=== PATIENT | female | born 1935 | race Caucasian/White ===

== ENCOUNTER 2020-02-27 13:26 | Inpatient (IN) | payer OTHER, MEDICAID, SELFPAY ==
[~2020-02-27] VITALS: Ht 157.5 cm; Wt 60.8 kg
[2020-02-27 13:44] VITALS: BP_SYST 133
[2020-02-27] MEDS ORDERED: LEVOFLOXACIN 500 MG/D5W 100 ML IV ONE (14:00)
[2020-02-27] MEDS ORDERED: ALBUTEROL SULFATE 0.083% 2.5 MG/3 ML VIAL.NEB INH ONE (14:00)
[2020-02-27] MEDS ORDERED: OMEG1CAP48 PO (14:37)
[2020-02-27] MEDS ORDERED: ASPI-524 PO (14:37)
[2020-02-27] MEDS ORDERED: AMLO5TAB4 PO (14:37)
[2020-02-27] MEDS ORDERED: DONE10TA4 PO (14:37)
[2020-02-27] MEDS ORDERED: DOCU100T10 PO (14:37)
[2020-02-27] MEDS ORDERED: FIBER POWDER PO (14:37)
[2020-02-27] MEDS ORDERED: LIP20 PO (14:38)
[2020-02-27] MEDS ORDERED: MAG-151 PO (14:38)
[2020-02-27] MEDS ORDERED: MELA5TAB12 PO (14:38)
[2020-02-27] MEDS ORDERED: METO25TA6 PO (14:43)
[2020-02-27] MEDS ORDERED: ACET325C6 PO (14:43)
[2020-02-27] MEDS ORDERED: OMEP-268 PO (14:43)
[2020-02-27] MEDS ORDERED: TRAM-545 PO (14:43)
[2020-02-27] MEDS ORDERED: SYN50 PO (14:43)
[2020-02-27] MEDS ORDERED: CAPS1ADH9 TP (14:43)
[2020-02-27 15:05] LABS: BASOPHILS % (AUTO) 0.4 % (0.0-2.0); EOSINOPHILS # (AUTO) 0.1 K/uL (0.0-0.4); EOSINOPHILS % (AUTO) 1.7 % (0.0-4.0); HEMATOCRIT 42.5 % (36-48); HEMOGLOBIN 14.3 g/dL (12.0-16.0); LYMPHOCYTES # (AUTO) 2.5 K/uL (1.0-5.5); LYMPHOCYTES % (AUTO) 44.2 % (20.5-51.5); MEAN CORPUSCULAR HEMOGLOBIN 30 pg (27-31); MEAN CORPUSCULAR HGB CONC 34 % (32-36); MEAN CORPUSCULAR VOLUME 89 fL (79.0-98.0); MONOCYTES # (AUTO) 0.4 K/uL (0.0-1.0); MONOCYTES % (AUTO) 7.3 % (1.7-9.3); NEUTROPHILS # (AUTO) 2.6 K/uL (1.8-7.7); NEUTROPHILS % (AUTO) 46.4 % (40.0-70.0); PLATELET COUNT (AUTO) 197 K/uL (130-430); RED BLOOD CELL COUNT(AUTO) 4.76 MIL/uL (4.2-6.2); RED CELL DISTRIBUTION WIDTH 13.3 % (9.0-15.0); WHITE BLOOD COUNT (AUTO) 5.6 K/uL (4.8-10.8)
[2020-02-27 15:07] LABS: BILIRUBIN,URINE NEGATIVE (NEGATIVE); COLOR,URINE YELLOW (YELLOW); GLUCOSE,URINE NEGATIVE (NEGATIVE); KETONES,URINE NEGATIVE (NEGATIVE); LEUKOCYTE ESTERASE ,URINE NEGATIVE (NEGATIVE); NITRITE, URINE NEGATIVE (NEGATIVE); PROTEIN URINE 1+ (NEGATIVE); UROBILINOGEN,URINE 0.2 (0.2-1.0)
[2020-02-27 15:17] LABS: BLOOD, URINE TRACE (NEGATIVE); CLARITY/URINE SLIGHTLY HAZY (CLEAR)
[2020-02-27] MEDS ORDERED: MAGN800O PO (15:25)
[2020-02-27 15:28] LABS: BACTERIA,URINE FEW /HPF (None Seen); MUCUS,URINE None Seen /LPF (None Seen)
[2020-02-27 15:29] LABS: URINE AMORPHOUS URATE 2+ /HPF (None Seen)
[2020-02-27 15:32] LABS: PROTHROMBIN TIME 10.3 SECS (9.5-12.5)
[2020-02-27 15:41] LABS: ANION GAP 10 (5-15); CALCIUM 9.1 mg/dL (8.4-11.0); CHLORIDE 103 mmol/L (98-107); CREATININE 0.77 mg/dL (0.55-1.30); GLUCOSE 110 mg/dL (70-99); POTASSIUM 3.9 mmol/L (3.5-5.1); SODIUM SERUM 140 mmol/L (136-145); UREA NITROGEN, BLOOD 15 mg/dL (8-21)
[2020-02-27 15:51] LABS: ALANINE AMINOTRANSFERASE 34 U/L (12-78); ALBUMIN 3.5 g/dL (3.4-4.8); ASPARTATE AMINOTRANSFERASE 38 U/L (10-37); FREE T4 (FREE THYROXINE) 1.4 ng/dl (0.8-1.5); TOTAL BILIRUBIN 1.5 mg/dL (0.0-1.0)
[2020-02-27] MEDS ORDERED: AZITHROMYCIN 250 MG TABLET PO ONE (17:30)
[2020-02-27 18:09] LABS: LACTATE DEHYDROGENASE 474 U/L (81-234)
[2020-02-27] MEDS ORDERED: ZOLPIDEM TARTRATE 5 MG TABLET PO PRN (18:15)
[2020-02-27] MEDS ORDERED: LORazepam 2 MG/ML VIAL IVP PRN (18:15)
[2020-02-27] MEDS ORDERED: MUPIROCIN 2% TOPICAL OINTMENT 22 GM NS PRN (18:15)
[2020-02-27] MEDS ORDERED: MAGNESIUM SULFATE 50 ML IV PRN (18:15)
[2020-02-27] MEDS ORDERED: DOCUSATE SODIUM 100 MG CAPSULE PO PRN (18:15)
[2020-02-27 18:23] LABS: C-REACTIVE PROTEIN QUANT < 0.2 mg/dL (0-0.5)
[2020-02-27 18:24] VITALS: BP_SYST 128
[2020-02-27] MEDS ORDERED: ENOXAPARIN SODIUM 40 MG/0.4 ML SYRINGE SUBCUT ONE (19:00)
[2020-02-27] MEDS ORDERED: ASCORBIC ACID 500 MG TABLET PO ONE (19:00)
[2020-02-27 20:00] VITALS: BP_SYST 151
[2020-02-27] MEDS: ATORVASTATIN 20 MG TABLET PO SCH (20:49)
[2020-02-27] MEDS: METOPROLOL TARTRATE 25 MG TABLET PO SCH (20:49)
[2020-02-27] MEDS: NACL 0.9% 1,000 ML IV SCH (21:24)
[2020-02-27] MEDS: cefTRIAXone 1 GM in D5W 50 ML IV SCH (21:24)
[2020-02-27] MEDS ORDERED: cefTRIAXone 1 GM IVPB PREMIX 50 ML IV ONE (21:34)
[2020-02-27] MEDS: MORPHINE SULFATE 10 MG/ML VIAL IVP PRN (22:35)
[2020-02-28] VITALS: BP_SYST 140
[2020-02-28] MEDS: LEVOTHYROXINE SODIUM 0.05 MG TABLET PO SCH (06:30)
[2020-02-28 07:08] LABS: BASOPHILS % (AUTO) 0.6 % (0.0-2.0); EOSINOPHILS # (AUTO) 0.1 K/uL (0.0-0.4); EOSINOPHILS % (AUTO) 2.5 % (0.0-4.0); HEMOGLOBIN 12.9 g/dL (12.0-16.0); LYMPHOCYTES # (AUTO) 1.9 K/uL (1.0-5.5); LYMPHOCYTES % (AUTO) 43.8 % (20.5-51.5); MEAN CORPUSCULAR HEMOGLOBIN 30 pg (27-31); MEAN CORPUSCULAR HGB CONC 34 % (32-36); MEAN CORPUSCULAR VOLUME 89 fL (79.0-98.0); MONOCYTES # (AUTO) 0.5 K/uL (0.0-1.0); MONOCYTES % (AUTO) 11.2 % (1.7-9.3); NEUTROPHILS # (AUTO) 1.8 K/uL (1.8-7.7); NEUTROPHILS % (AUTO) 41.9 % (40.0-70.0); PLATELET COUNT (AUTO) 161 K/uL (130-430); RED BLOOD CELL COUNT(AUTO) 4.26 MIL/uL (4.2-6.2); RED CELL DISTRIBUTION WIDTH 12.9 % (9.0-15.0); WHITE BLOOD COUNT (AUTO) 4.4 K/uL (4.8-10.8)
[2020-02-28 07:14] LABS: ANION GAP 8 (5-15); CHLORIDE 101 mmol/L (98-107); CREATININE 0.64 mg/dL (0.55-1.30); GLUCOSE 94 mg/dL (70-99); LACTATE DEHYDROGENASE 207 U/L (81-234); POTASSIUM 3.3 mmol/L (3.5-5.1); SODIUM SERUM 137 mmol/L (136-145); UREA NITROGEN, BLOOD 11 mg/dL (8-21)
[2020-02-28 07:16] LABS: C-REACTIVE PROTEIN QUANT < 0.2 mg/dL (0-0.5)
[2020-02-28 08:10] VITALS: BP_SYST 157
[2020-02-28 08:30] LABS: ERYTHROCYTE SEDIMENTATION RATE 12 MM/HR (0-20)
[2020-02-28] MEDS: MORPHINE SULFATE 10 MG/ML VIAL IVP PRN ×2 (08:45→09:22)
[2020-02-28] MEDS: ONDANSETRON HCL 4 MG/2 ML VIAL IVP PRN (08:50)
[2020-02-28] MEDS ORDERED: amLODIPine BESYLATE 5 MG TABLET PO SCH (09:00)
[2020-02-28] MEDS: AZITHROMYCIN 250 MG TABLET PO SCH (09:16)
[2020-02-28] MEDS: ENOXAPARIN SODIUM 40 MG/0.4 ML SYRINGE SUBCUT SCH (09:16)
[2020-02-28] MEDS: ASCORBIC ACID 500 MG TABLET PO SCH (09:16)
[2020-02-28] MEDS: ASPIRIN 81 MG TAB.CHEW PO SCH (09:16)
[2020-02-28] MEDS: METOPROLOL TARTRATE 25 MG TABLET PO SCH ×2 (09:17→21:10)
[2020-02-28] MEDS: NACL 0.9% 1,000 ML IV SCH (16:50)
[2020-02-28 16:51] VITALS: BP_SYST 149
[2020-02-28] MEDS ORDERED: CHOLECALCIFEROL (VITAMIN D3) 2,000 UNIT TABLET PO ONE (17:30)
[2020-02-28] MEDS ORDERED: IVERMECTIN 3 MG TABLET PO ONE (17:30)
[2020-02-28 20:00] VITALS: BP_SYST 136
[2020-02-28] MEDS: cefTRIAXone 1 GM in D5W 50 ML IV SCH (21:09)
[2020-02-28] MEDS: ATORVASTATIN 20 MG TABLET PO SCH (21:10)
[2020-02-28] MEDS: ACETAMINOPHEN 325 MG TABLET PO PRN (21:11)
[2020-02-28] MEDS: MELATONIN 3 MG TABLET PO PRN (21:11)
[2020-02-29] VITALS: BP_SYST 131
[2020-02-29] MEDS: LEVOTHYROXINE SODIUM 0.05 MG TABLET PO SCH (06:40)
[2020-02-29 08:18] LABS: BASOPHILS % (AUTO) 0.7 % (0.0-2.0); EOSINOPHILS # (AUTO) 0.2 K/uL (0.0-0.4); EOSINOPHILS % (AUTO) 3.8 % (0.0-4.0); HEMATOCRIT 45.3 % (36-48); HEMOGLOBIN 15.5 g/dL (12.0-16.0); LYMPHOCYTES # (AUTO) 1.8 K/uL (1.0-5.5); LYMPHOCYTES % (AUTO) 40.1 % (20.5-51.5); MEAN CORPUSCULAR HEMOGLOBIN 31 pg (27-31); MEAN CORPUSCULAR HGB CONC 34 % (32-36); MEAN CORPUSCULAR VOLUME 90 fL (79.0-98.0); MONOCYTES # (AUTO) 0.4 K/uL (0.0-1.0); MONOCYTES % (AUTO) 9.2 % (1.7-9.3); NEUTROPHILS # (AUTO) 2.1 K/uL (1.8-7.7); NEUTROPHILS % (AUTO) 46.2 % (40.0-70.0); PLATELET COUNT (AUTO) 158 K/uL (130-430); RED BLOOD CELL COUNT(AUTO) 5.05 MIL/uL (4.2-6.2); RED CELL DISTRIBUTION WIDTH 13.1 % (9.0-15.0); WHITE BLOOD COUNT (AUTO) 4.5 K/uL (4.8-10.8)
[2020-02-29 08:20] VITALS: BP_SYST 131
[2020-02-29 08:23] LABS: ANION GAP 6 (5-15); CALCIUM 8.8 mg/dL (8.4-11.0); CHLORIDE 107 mmol/L (98-107); CREATININE 0.68 mg/dL (0.55-1.30); GLUCOSE 105 mg/dL (70-99); POTASSIUM 3.4 mmol/L (3.5-5.1); SODIUM SERUM 140 mmol/L (136-145); UREA NITROGEN, BLOOD 8 mg/dL (8-21)
[2020-02-29 08:24] LABS: C-REACTIVE PROTEIN QUANT < 0.2 mg/dL (0-0.5)
[2020-02-29] MEDS: ASPIRIN 81 MG TAB.CHEW PO SCH (09:47)
[2020-02-29] MEDS: ASCORBIC ACID 500 MG TABLET PO SCH (09:47)
[2020-02-29] MEDS: METOPROLOL TARTRATE 25 MG TABLET PO SCH ×2 (09:47→21:07)
[2020-02-29] MEDS: CHOLECALCIFEROL (VITAMIN D3) 2,000 UNIT TABLET PO SCH (09:47)
[2020-02-29] MEDS: AZITHROMYCIN 250 MG TABLET PO SCH (09:49)
[2020-02-29] MEDS: ENOXAPARIN SODIUM 40 MG/0.4 ML SYRINGE SUBCUT SCH (09:50)
[2020-02-29] MEDS: NACL 0.9% 1,000 ML IV SCH (12:15)
[2020-02-29] MEDS: POTASSIUM CHLORIDE 20 MEQ TAB.PRT.SR PO PRN (12:40)
[2020-02-29 12:55] VITALS: BP_SYST 143
[2020-02-29 15:42] VITALS: BP_SYST 148
[2020-02-29 20:00] VITALS: BP_SYST 154
[2020-02-29] MEDS: ATORVASTATIN 20 MG TABLET PO SCH (21:07)
[2020-02-29] MEDS: cefTRIAXone 1 GM in D5W 50 ML IV SCH (21:07)
[2020-02-29] MEDS: ACETAMINOPHEN 325 MG TABLET PO PRN (21:08)
[2020-02-29] MEDS: MELATONIN 3 MG TABLET PO PRN (22:43)
[2020-03-01] VITALS: BP_SYST 147
[2020-03-01] MEDS: LEVOTHYROXINE SODIUM 0.05 MG TABLET PO SCH (06:44)
[2020-03-01 07:07] LABS: BASOPHILS % (AUTO) 0.5 % (0.0-2.0); EOSINOPHILS # (AUTO) 0.2 K/uL (0.0-0.4); EOSINOPHILS % (AUTO) 3.4 % (0.0-4.0); HEMATOCRIT 42.1 % (36-48); HEMOGLOBIN 14.4 g/dL (12.0-16.0); LYMPHOCYTES # (AUTO) 2.1 K/uL (1.0-5.5); LYMPHOCYTES % (AUTO) 39.4 % (20.5-51.5); MEAN CORPUSCULAR HEMOGLOBIN 30 pg (27-31); MEAN CORPUSCULAR HGB CONC 34 % (32-36); MEAN CORPUSCULAR VOLUME 89 fL (79.0-98.0); MONOCYTES # (AUTO) 0.4 K/uL (0.0-1.0); MONOCYTES % (AUTO) 7.2 % (1.7-9.3); NEUTROPHILS # (AUTO) 2.6 K/uL (1.8-7.7); NEUTROPHILS % (AUTO) 49.5 % (40.0-70.0); PLATELET COUNT (AUTO) 185 K/uL (130-430); RED BLOOD CELL COUNT(AUTO) 4.72 MIL/uL (4.2-6.2); RED CELL DISTRIBUTION WIDTH 12.8 % (9.0-15.0); WHITE BLOOD COUNT (AUTO) 5.3 K/uL (4.8-10.8)
[2020-03-01 07:20] LABS: ANION GAP 9 (5-15); CALCIUM 8.7 mg/dL (8.4-11.0); CHLORIDE 106 mmol/L (98-107); CREATININE 0.65 mg/dL (0.55-1.30); GLUCOSE 110 mg/dL (70-99); POTASSIUM 3.5 mmol/L (3.5-5.1); SODIUM SERUM 142 mmol/L (136-145); UREA NITROGEN, BLOOD 6 mg/dL (8-21)
[2020-03-01] MEDS: ASCORBIC ACID 500 MG TABLET PO SCH (09:30)
[2020-03-01] MEDS: CHOLECALCIFEROL (VITAMIN D3) 2,000 UNIT TABLET PO SCH (09:30)
[2020-03-01] MEDS: ASPIRIN 81 MG TAB.CHEW PO SCH (09:30)
[2020-03-01] MEDS: AZITHROMYCIN 250 MG TABLET PO SCH (09:30)
[2020-03-01] MEDS: METOPROLOL TARTRATE 25 MG TABLET PO SCH ×2 (09:30→21:28)
[2020-03-01] MEDS: ENOXAPARIN SODIUM 40 MG/0.4 ML SYRINGE SUBCUT SCH (09:31)
[2020-03-01] MEDS: NACL 0.9% 1,000 ML IV SCH (09:36)
[2020-03-01 12:41] VITALS: BP_SYST 143
[2020-03-01 16:00] VITALS: BP_SYST 136
[2020-03-01 20:00] VITALS: BP_SYST 153
[2020-03-01] MEDS: cefTRIAXone 1 GM in D5W 50 ML IV SCH (21:28)
[2020-03-01] MEDS: ATORVASTATIN 20 MG TABLET PO SCH (21:29)
[2020-03-01] MEDS: MORPHINE SULFATE 10 MG/ML VIAL IVP PRN (22:21)
[2020-03-02] VITALS: BP_SYST 143
[2020-03-02] MEDS: NACL 0.9% 1,000 ML IV SCH ×2 (03:33→23:44)
[2020-03-02] MEDS: LEVOTHYROXINE SODIUM 0.05 MG TABLET PO SCH (06:14)
[2020-03-02 07:29] LABS: BASOPHILS # (AUTO) 0.1 K/uL (0.0-0.2); BASOPHILS % (AUTO) 0.8 % (0.0-2.0); EOSINOPHILS # (AUTO) 0.1 K/uL (0.0-0.4); EOSINOPHILS % (AUTO) 1.8 % (0.0-4.0); HEMATOCRIT 40.5 % (36-48); MEAN CORPUSCULAR HEMOGLOBIN 30 pg (27-31); MEAN CORPUSCULAR HGB CONC 35 % (32-36); MEAN CORPUSCULAR VOLUME 88 fL (79.0-98.0); MONOCYTES # (AUTO) 0.5 K/uL (0.0-1.0); MONOCYTES % (AUTO) 7.4 % (1.7-9.3); PLATELET COUNT (AUTO) 175 K/uL (130-430); RED BLOOD CELL COUNT(AUTO) 4.62 MIL/uL (4.2-6.2); RED CELL DISTRIBUTION WIDTH 12.8 % (9.0-15.0); WHITE BLOOD COUNT (AUTO) 6.6 K/uL (4.8-10.8)
[2020-03-02 07:46] LABS: ANION GAP 8 (5-15); CALCIUM 8.6 mg/dL (8.4-11.0); CHLORIDE 105 mmol/L (98-107); CREATININE 0.63 mg/dL (0.55-1.30); GLUCOSE 108 mg/dL (70-99); LACTATE DEHYDROGENASE 185 U/L (81-234); SODIUM SERUM 142 mmol/L (136-145); UREA NITROGEN, BLOOD 6 mg/dL (8-21)
[2020-03-02 08:04] LABS: FIBRINOGEN 310 mg/dL (200-400)
[2020-03-02 08:10] LABS: C-REACTIVE PROTEIN QUANT < 0.2 mg/dL (0-0.5)
[2020-03-02 08:22] LABS: ERYTHROCYTE SEDIMENTATION RATE 13 MM/HR (0-20)
[2020-03-02] MEDS: ASCORBIC ACID 500 MG TABLET PO SCH (08:43)
[2020-03-02] MEDS: AZITHROMYCIN 250 MG TABLET PO SCH (08:43)
[2020-03-02] MEDS: CHOLECALCIFEROL (VITAMIN D3) 2,000 UNIT TABLET PO SCH (08:43)
[2020-03-02] MEDS: METOPROLOL TARTRATE 25 MG TABLET PO SCH ×2 (08:43→22:15)
[2020-03-02] MEDS: ASPIRIN 81 MG TAB.CHEW PO SCH (08:43)
[2020-03-02] MEDS: ENOXAPARIN SODIUM 40 MG/0.4 ML SYRINGE SUBCUT SCH (08:44)
[2020-03-02 09:22] VITALS: BP_SYST 139
[2020-03-02] MEDS: POTASSIUM CHLORIDE 20 MEQ TAB.PRT.SR PO PRN (12:14)
[2020-03-02 12:53] VITALS: BP_SYST 134
[2020-03-02 18:32] VITALS: BP_SYST 149
[2020-03-02 20:55] VITALS: BP_SYST 136
[2020-03-02] MEDS: ATORVASTATIN 20 MG TABLET PO SCH (22:15)
[2020-03-02] MEDS: cefTRIAXone 1 GM in D5W 50 ML IV SCH (22:19)
[2020-03-03 00:01] VITALS: BP_SYST 148
[2020-03-03] MEDS: MORPHINE SULFATE 10 MG/ML VIAL IVP PRN ×2 (06:30→12:54)
[2020-03-03] MEDS: LEVOTHYROXINE SODIUM 0.05 MG TABLET PO SCH (06:30)
[2020-03-03 07:04] LABS: BASOPHILS # (AUTO) 0.1 K/uL (0.0-0.2); BASOPHILS % (AUTO) 1.1 % (0.0-2.0); EOSINOPHILS # (AUTO) 0.1 K/uL (0.0-0.4); EOSINOPHILS % (AUTO) 1.9 % (0.0-4.0); HEMATOCRIT 38.7 % (36-48); HEMOGLOBIN 13.6 g/dL (12.0-16.0); LYMPHOCYTES # (AUTO) 2.5 K/uL (1.0-5.5); LYMPHOCYTES % (AUTO) 45.1 % (20.5-51.5); MEAN CORPUSCULAR HEMOGLOBIN 31 pg (27-31); MEAN CORPUSCULAR HGB CONC 35 % (32-36); MEAN CORPUSCULAR VOLUME 89 fL (79.0-98.0); MONOCYTES # (AUTO) 0.5 K/uL (0.0-1.0); MONOCYTES % (AUTO) 9.6 % (1.7-9.3); NEUTROPHILS # (AUTO) 2.3 K/uL (1.8-7.7); NEUTROPHILS % (AUTO) 42.3 % (40.0-70.0); PLATELET COUNT (AUTO) 175 K/uL (130-430); RED BLOOD CELL COUNT(AUTO) 4.37 MIL/uL (4.2-6.2); WHITE BLOOD COUNT (AUTO) 5.5 K/uL (4.8-10.8)
[2020-03-03 07:12] LABS: ANION GAP 4 (5-15); CALCIUM 8.5 mg/dL (8.4-11.0); CHLORIDE 105 mmol/L (98-107); CREATININE 0.62 mg/dL (0.55-1.30); GLUCOSE 117 mg/dL (70-99); POTASSIUM 3.4 mmol/L (3.5-5.1); SODIUM SERUM 137 mmol/L (136-145); UREA NITROGEN, BLOOD 8 mg/dL (8-21)
[2020-03-03 09:09] VITALS: BP_SYST 139
[2020-03-03] MEDS: ASPIRIN 81 MG TAB.CHEW PO SCH (09:12)
[2020-03-03] MEDS: ASCORBIC ACID 500 MG TABLET PO SCH (09:12)
[2020-03-03] MEDS: METOPROLOL TARTRATE 25 MG TABLET PO SCH (09:12)
[2020-03-03] MEDS: CHOLECALCIFEROL (VITAMIN D3) 2,000 UNIT TABLET PO SCH (09:12)
[2020-03-03] MEDS: ENOXAPARIN SODIUM 40 MG/0.4 ML SYRINGE SUBCUT SCH (09:12)
[2020-03-03 12:46] VITALS: BP_SYST 142
[2020-03-03] MEDS: ONDANSETRON HCL 4 MG/2 ML VIAL IVP PRN (15:20)
[2020-03-03 15:47] VITALS: BP_SYST 144
[2020-03-03 16:22] VITALS: BP_SYST 144
[2020-03-03] MEDS: POTASSIUM CHLORIDE 20 MEQ TAB.PRT.SR PO PRN (18:32)
== END 2020-03-03 19:40 | DRG 871 ==
LOC: SED 13:26 → EEVIPCON 13:26 → STU 17:06
PROVIDERS: ADMIT General Practice; ATTEND General Practice
DX: A41.9 Sepsis, unspecified organism (principal); U07.1 COVID-19; J96.01 Acute respiratory failure with hypoxia; J12.89 Other viral pneumonia; N39.0 Urinary tract infection, site not specified; E03.9 Hypothyroidism, unspecified; E78.5 Hyperlipidemia, unspecified; F02.80 Dementia in other diseases classified elsewhere, unspecified severity, without behavioral disturbance, psychotic disturbance, mood disturbance, and anxiety; F32.9 Major depressive disorder, single episode, unspecified; I10 Essential (primary) hypertension; F41.9 Anxiety disorder, unspecified; G30.9 Alzheimer's disease, unspecified; M19.90 Unspecified osteoarthritis, unspecified site; E55.9 Vitamin D deficiency, unspecified; Z66 Do not resuscitate; Z79.899 Other long term (current) drug therapy; Z79.82 Long term (current) use of aspirin
CPT/HCPCS: 36415; 36600; 71045; 80048; 80053; 81000-TC; 82728; 82803-TC; 83036; 83605; 83615-TC; 83735-TC; 83880; 84439; 84484; 85025; 85379; 85384-TC; 85610-TC; 85651-TC; 86140; 86710; 87040-TC; 87081; 93005; 94640; 96365; 99291; G0378; J0696; J1650; J1956; J2270; J2405; J7030; J7060; J7613; Q0144; U0002